=== PATIENT | female | born 1985 | race Caucasian/White ===

== ENCOUNTER 2017-02-17 19:15 | Emergency (ER) | payer OTHER ==
[~2017-02-17] VITALS: Ht 154.9 cm; Wt 56.7 kg
[~2017-02-17 19:15] MED LIST: 'PARAFON FORTE500 M1 PO; AMOXICILLIN500 MG PO; ATARAX10 MG/5 ML PO; AUGMENTIN 875 M1 TA1 PO; BIRTH CONTROL1 EACH PO; CARAFATE1 G1 PO; CARAFATE1 GM/10 ML PO; CLARITIN-D 10 M1 T21 PO; CLARITIN-D 12 H1 TAB PO; CYCLOBENZAPRINE10 MG PO; Carafate1 GM PO; DARVOCET N 1001 TAB PO; DAYPRO600 M1 PO; IMITREX25 MG PO; KLONOPIN1 MG PO; LITHIUM CARBON300 M1 PO; LITHIUM CARBON300 MG PO; LOMOTIL 0.025 M1 TA1 PO; MACROBID100 M1 PO; MOTRIN600 MG PO; MOTRIN800 MG PO; NAPROSYN500 MG PO; PANTOPRAZOLE SO40 MG PO; PREDNISONE20 MG PO; PREVACID SOLUTA30 MG PO; PRILOSEC20 MG PO; QVAR40 MCG INH; REMERON45 MG PO; RISPERDAL4 MG PO; RISPERIDONE2 M2 PO; SEROQUEL100 MG PO; SEROQUEL300 MG PO; SEROQUEL400 MG PO; SINGULAIR10 MG PO; ZANTAC150 MG PO; ZITHROMAX Z PA250 MG PO; ZITHROMAX250 MG PO; ZOFRAN ODT4 MG SL; ZOFRAN4 MG PO; ZOLOFT100 MG PO; ZOLOFT25 MG PO; ZYRTEC10 MG PO; Zofran4 MG PO
[2017-02-17] MEDS ORDERED: AMOXICILLI250 MG/5 M PO (19:40)
== END 2017-02-17 19:46 | disposition home or self-care (01) ==
LOC: ED 19:15
DX: H66.92 Otitis media, unspecified, left ear (principal); F17.200 Nicotine dependence, unspecified, uncomplicated; F32.9 Major depressive disorder, single episode, unspecified; Z79.899 Other long term (current) drug therapy

== ENCOUNTER 2017-03-02 17:40 | Emergency (ER) | payer OTHER ==
[~2017-03-02] VITALS: Wt 49.9 kg
[~2017-03-02 17:40] MED LIST changes: +AMOXICILLI250 MG/5 M PO
[2017-03-02] MEDS ORDERED: CATAPRES-TTS 10.1 MG PO (17:44)
[2017-03-02] MEDS ORDERED: ZANTAC 150150 MG PO (17:44)
[2017-03-02 18:24] LABS: BASO # 0.1 10*3/uL (0.0-0.1); BASO % 0.8 % (0.0-1.0); EOS # 0.1 10*3/uL (0.0-0.4); HEMATOCRIT 42.9 % (37.0-47.0); HEMOGLOBIN 14.1 g/dl (12.0-16.0); IG # 0.1 10*3/uL (0.0-0.1); LYMPH # 3.7 10*3/uL (1.3-4.4); LYMPH % 31.8 % (27.0-41.0); MEAN CELL VOLUME 91.9 fl (81.0-99.0); MEAN CORPUSCULAR HGB 30.2 pg (27.0-31.0); MEAN CORPUSCULAR HGB CONC 32.9 g/dl (33.0-37.0); MEAN PLATELET VOLUME 10.3 fl (9.6-12.3); MONO # 0.5 10*3/uL (0.1-1.0); MONO % 4.1 % (3.0-9.0); NEUT # 7.2 10*3/uL (2.3-7.9); NEUT % 61.9 % (47.0-73.0); PLATELET COUNT AUTOMATED 300 10*3/uL (130-400); RED BLOOD COUNT 4.67 10*6/uL (4.10-5.10); RED CELL DISTRI WIDTH 14.4 % (0-14.5); WHITE BLOOD COUNT 11.6 10*3/uL (4.8-10.8)
[2017-03-02] MEDS ORDERED: BENTYL10 MG PO (18:27)
[2017-03-02 18:38] LABS: ALKALINE PHOSPHATASE 92 U/L (45-117); BILIRUBIN, TOTAL 0.2 mg/dl (0.2-1.0); BUN 7 mg/dl (7-24); CARBON DIOXIDE 26 mmol/L (21-32); CHLORIDE 107 mmol/L (98-107); EST GLOM FILT AFRICAN AMERICAN > 60 ml/min; GLUCOSE 96 mg/dL (65-99); MAGNESIUM 2.1 mg/dL (1.5-2.1); POTASSIUM 4.2 mmol/L (3.5-5.1); SGOT/AST 14 IU/L (3-35); SGPT/ALT 12 U/L (12-78); SODIUM 143 mmol/L (136-145); TOTAL PROTEIN 7.3 gm/dL (6.4-8.2)
== END 2017-03-02 19:04 | disposition home or self-care (01) ==
LOC: ED 17:40
PROVIDERS: Nurse Practitioner Family
DX: R19.7 Diarrhea, unspecified (principal); F17.200 Nicotine dependence, unspecified, uncomplicated; F32.9 Major depressive disorder, single episode, unspecified

== ENCOUNTER → 2017-04-09 | Day surgery (SDC) | payer OTHER ==
[~2017-04-09] VITALS: Ht 154.9 cm; Wt 54.9 kg
[~2017-04-09] MED LIST changes: +BENTYL10 MG PO; +CATAPRES-TTS 10.1 MG PO; +NORCO 5-325 TA1 EACH PO; +PENICILLIN VK500 MG PO; +QVAR8.7 GM INH; +ZANTAC 150150 MG PO
--- NOTE | ~2017-04-09 | O ---
[place], [place] OPERATIVE NOTE NAME: PRASHANTH WEBB UNIT #: [id number] ROOM: DOCTOR: THERESA EDWARDS DMD BIRTHDATE: [birth year] DOS: 04/11/2017 PREOPERATIVE DIAGNOSES: Nonrestorable maxillary and mandibular dentition and anxiety. POSTOPERATIVE DIAGNOSES: Nonrestorable maxillary and mandibular dentition and anxiety. ANESTHESIA: General anesthesia with nasotracheal intubation. FLUIDS: Minimal. ESTIMATED BLOOD LOSS: Minimal. COMPLICATIONS: None. CONDITION: To PACU, stable. DESCRIPTION OF PROCEDURE: The patient was brought to the OR, placed in supine position. IV and EKG lines were placed. Nasotracheal intubation and general anesthesia was administered. The patient was prepped and draped for oral procedures. Risks and benefits were explained to the patient prior to surgery. Clinical exam and x-rays were taken determined nonrestorable maxillary and mandibular dentition. PROCEDURES PERFORMED: Full thickness flaps in the upper right, upper left and lower right quadrants, moderate bone removal around teeth numbers 1, 16 and 32. Complete extraction of teeth numbers 1, 2, 3, 4, 5, 6, 7, 8, 9, 10, 11, 15, 16, 21, 22, 23, 24, 25, 26, 27, 28, 31 and 32. Moderate alveoplasty in all 4 quadrants, sutured with 4-0 Vicryl. Maxillary and temporary dentures were tried in. Lavage x 2. Throat pack removed. The patient left the OR in good condition and went to the PACU. THERESA EDWARDS DMD CM:OPRECORD:OPERATIVE NOTE [id number] THERESA EDWARDS DMD 04/11/17 1334 interface
[2017-04-09 09:01] VITALS: BP 105/47
[2017-04-09 11:13] VITALS: BP 95/46
[2017-04-09 11:28] VITALS: BP 83/45
[2017-04-09 11:43] VITALS: BP 91/47
[2017-04-09 11:58] VITALS: BP 108/69
[2017-04-09 12:13] VITALS: BP 108/72
== END | disposition home or self-care (01) ==
LOC: SDC 04-04 09:30
DX: K00.7 Teething syndrome (principal); K02.9 Dental caries, unspecified; F41.9 Anxiety disorder, unspecified; F31.9 Bipolar disorder, unspecified; K21.9 Gastro-esophageal reflux disease without esophagitis; G43.909 Migraine, unspecified, not intractable, without status migrainosus; F90.9 Attention-deficit hyperactivity disorder, unspecified type; J45.909 Unspecified asthma, uncomplicated; F17.210 Nicotine dependence, cigarettes, uncomplicated

== ENCOUNTER 2017-11-15 21:47 | Emergency (ER) | payer OTHER ==
[~2017-11-15] VITALS: Ht 154.9 cm; Wt 64.9 kg
[2017-11-15] MEDS ORDERED: AMOX-CLAV 400-1 EACH PO (22:07)
== END 2017-11-15 22:00 | disposition home or self-care (01) ==
LOC: ED 21:47
DX: H65.93 Unspecified nonsuppurative otitis media, bilateral (principal); F17.200 Nicotine dependence, unspecified, uncomplicated

== ENCOUNTER 2017-12-12 18:18 | Emergency (ER) | payer OTHER ==
[~2017-12-12] VITALS: Wt 60.8 kg
[~2017-12-12 18:18] MED LIST changes: +AMOX-CLAV 400-1 EACH PO
[2017-12-12] MEDS ORDERED: OMNICEF300 MG PO (20:57)
== END 2017-12-12 21:00 | disposition home or self-care (01) ==
LOC: ED 18:18
DX: J32.1 Chronic frontal sinusitis (principal); F17.200 Nicotine dependence, unspecified, uncomplicated; Z79.899 Other long term (current) drug therapy

== ENCOUNTER 2018-03-09 18:09 | Emergency (ER) | payer OTHER ==
[~2018-03-09] VITALS: Ht 154.9 cm; Wt 63.5 kg
[~2018-03-09 18:09] MED LIST changes: +OMNICEF300 MG PO
[2018-03-09] MEDS ORDERED: OMNICEF300 MG PO (18:33)
== END 2018-03-09 18:42 | disposition home or self-care (01) ==
LOC: ED 18:09
DX: H66.93 Otitis media, unspecified, bilateral (principal); Z79.899 Other long term (current) drug therapy

== ENCOUNTER → 2020-01-30 | Outpatient (CLI) | payer MEDICARE, MEDICAID ==
[~2020-01-30] MED LIST changes: +AUGMENTIN 875875 MG PO; +BUSPIRONE HCL7.5 MG PO; +DEPAKOTE250 MG PO; +DEPAKOTE500 MG PO; +DIVALPROEX SOD250 MG PO; +LEVAQUIN750 M1 PO; +SEROQUEL400 M1 PO; +SINGULAIR10 M1 PO; -SINGULAIR10 MG PO
[2020-01-30 13:07] LABS: BASO # 0.1 10*3/uL (0.0-0.1); BASO % 0.9 % (0.0-1.0); EOS # 0.1 10*3/uL (0.0-0.4); EOS % 1.2 % (1.0-4.0); HEMATOCRIT 40.1 % (37.0-47.0); HEMOGLOBIN 12.9 g/dl (12.0-16.0); LYMPH # 4.3 10*3/uL (1.3-4.4); LYMPH % 36.9 % (27.0-41.0); MEAN CELL VOLUME 93.7 fl (81.0-99.0); MEAN CORPUSCULAR HGB 30.1 pg (27.0-31.0); MEAN CORPUSCULAR HGB CONC 32.2 g/dl (33.0-37.0); MONO # 0.6 10*3/uL (0.1-1.0); MONO % 5.2 % (3.0-9.0); NEUT # 6.5 10*3/uL (2.3-7.9); NEUT % 55.5 % (47.0-73.0); PLATELET COUNT AUTOMATED 316 10*3/uL (130-400); RED BLOOD COUNT 4.28 10*6/uL (4.10-5.10); RED CELL DISTRI WIDTH 14.9 % (0-14.5); WHITE BLOOD COUNT 11.7 10*3/uL (4.8-10.8)
[2020-01-30 13:36] LABS: ALBUMIN 3.1 gm/dl (3.1-4.5); ALKALINE PHOSPHATASE 90 U/L (45-117); BUN 12 mg/dl (7-24); CHLORIDE 104 mmol/L (98-107); CHOLESTEROL 196 mg/dL (<200); CREATININE 0.93 mg/dL (0.55-1.02); HDL CHOLESTEROL 56 mg/dl (40-60); LDL CHOLESTEROL 73 mg/dL (9-159); POTASSIUM 4.3 mmol/L (3.5-5.1); SGOT/AST 10 IU/L (3-35); SGPT/ALT 16 U/L (12-78); SODIUM 137 mmol/L (136-145); TOTAL PROTEIN 7.5 gm/dL (6.4-8.2); TRIGLYCERIDES 333 mg/dl (<150); VLDL CHOLESTEROL 67 mg/dL (6-40)
== END | disposition home or self-care (01) ==
LOC: LAB 12:31
PROVIDERS: Registered Nurse Psychiatric/Mental Health
DX: F31.81 Bipolar II disorder (principal); E78.5 Hyperlipidemia, unspecified; E43 Unspecified severe protein-calorie malnutrition

== ENCOUNTER → 2020-04-10 | Outpatient (CLI) | payer MEDICARE, MEDICAID | END | disposition home or self-care (01) | LOC: LAB 10:16 | DX: F31.81 Bipolar II disorder (principal) ==

== ENCOUNTER → 2020-04-27 | Outpatient (CLI) | payer MEDICARE, MEDICAID ==
[2020-04-27 09:36] LABS: HEMATOCRIT 38.7 % (37.0-47.0); MEAN CELL VOLUME 92.4 fl (81.0-99.0); MEAN CORPUSCULAR HGB 30.1 pg (27.0-31.0); MEAN CORPUSCULAR HGB CONC 32.6 g/dl (33.0-37.0); MEAN PLATELET VOLUME 10.9 fl (9.6-12.3); PLATELET COUNT AUTOMATED 304 10*3/uL (130-400); RED BLOOD COUNT 4.19 10*6/uL (4.10-5.10); RED CELL DISTRI WIDTH 16.7 % (0-14.5); WHITE BLOOD COUNT 11.5 10*3/uL (4.8-10.8)
[2020-04-27 09:59] LABS: BASOPHILS 1 % (0-1); PLATELET SUFFICIENCY NORMAL (NORMAL); TARGET CELLS MODERATE; TOTAL CELLS COUNTED 100 #CELLS
[2020-04-27 10:03] LABS: ALBUMIN 3.1 gm/dl (3.1-4.5); BUN 10 mg/dl (7-24); CHLORIDE 102 mmol/L (98-107); CHOLESTEROL 132 mg/dL (<200); CREATININE 1.11 mg/dL (0.55-1.02); POTASSIUM 3.8 mmol/L (3.5-5.1); SGPT/ALT 17 U/L (12-78); SODIUM 137 mmol/L (136-145); TOTAL PROTEIN 6.7 gm/dL (6.4-8.2); TRIGLYCERIDES 559 mg/dl (<150)
[2020-04-27 10:04] LABS: ALKALINE PHOSPHATASE 51 U/L (45-117); HDL CHOLESTEROL 5 mg/dl (40-60); SGOT/AST 10 IU/L (3-35); VALPROIC ACID (DEPAKENE) 119.7 ug/ml (50-100)
== END | disposition home or self-care (01) ==
LOC: LAB 09:01
PROVIDERS: Registered Nurse Psychiatric/Mental Health
DX: F31.9 Bipolar disorder, unspecified (principal); E11.9 Type 2 diabetes mellitus without complications

== ENCOUNTER 2020-08-18 12:01 | Emergency (ER) | payer MEDICARE, MEDICAID ==
[~2020-08-18] VITALS: Ht 154.9 cm; Wt 69.4 kg
[2020-08-18] MEDS ORDERED: OMNICEF300 MG PO (13:18)
== END 2020-08-18 13:14 | disposition home or self-care (01) ==
LOC: ED 12:01
DX: H66.91 Otitis media, unspecified, right ear (principal); J45.909 Unspecified asthma, uncomplicated; K21.9 Gastro-esophageal reflux disease without esophagitis; F41.9 Anxiety disorder, unspecified; F31.9 Bipolar disorder, unspecified; G43.909 Migraine, unspecified, not intractable, without status migrainosus; Z79.899 Other long term (current) drug therapy

== ENCOUNTER → 2020-09-18 | Outpatient (CLI) | payer MEDICARE, MEDICAID ==
[2020-09-18 08:36] LABS: HEMATOCRIT 40.1 % (37.0-47.0); MEAN CELL VOLUME 89.5 fl (81.0-99.0); MEAN CORPUSCULAR HGB CONC 32.4 g/dl (33.0-37.0); MEAN PLATELET VOLUME 10.1 fl (9.6-12.3); PLATELET COUNT AUTOMATED 298 10*3/uL (130-400); RED BLOOD COUNT 4.48 10*6/uL (4.10-5.10); RED CELL DISTRI WIDTH 13.4 % (0-14.5); WHITE BLOOD COUNT 11.3 10*3/uL (4.8-10.8)
[2020-09-18 08:53] LABS: ALKALINE PHOSPHATASE 74 U/L (45-117); BUN 9 mg/dl (7-24); CHLORIDE 102 mmol/L (98-107); CHOLESTEROL 132 mg/dL (<200); CREATININE 0.92 mg/dL (0.55-1.02); HDL CHOLESTEROL 42 mg/dl (40-60); SGOT/AST 7 IU/L (3-35); SGPT/ALT 12 U/L (12-78); SODIUM 135 mmol/L (136-145); TOTAL PROTEIN 6.9 gm/dL (6.4-8.2); TRIGLYCERIDES 455 mg/dl (<150)
[2020-09-18 08:56] LABS: ATYPICAL LYMPHS 1 % (0-0); BASOPHILS 2 % (0-1); TOTAL CELLS COUNTED 100 #CELLS
[2020-09-18 08:57] LABS: PLATELET SUFFICIENCY NORMAL (NORMAL); POLYCHROMASIA SLIGHT
== END | disposition home or self-care (01) ==
LOC: LAB 08:10
PROVIDERS: ATTEND Registered Nurse Psychiatric/Mental Health
DX: F31.9 Bipolar disorder, unspecified (principal); Z79.899 Other long term (current) drug therapy

== ENCOUNTER 2020-11-22 18:14 | Emergency (ER) | payer MEDICARE, MEDICAID ==
[~2020-11-22] VITALS: Wt 63.5 kg
[2020-11-22 20:16] LABS: BASO # 0.1 10*3/uL (0.0-0.1); BASO % 0.7 % (0.0-1.0); EOS # 0.1 10*3/uL (0.0-0.4); EOS % 0.9 % (1.0-4.0); LYMPH # 3.9 10*3/uL (1.3-4.4); LYMPH % 32.6 % (27.0-41.0); MEAN CELL VOLUME 89.4 fl (81.0-99.0); MEAN CORPUSCULAR HGB 28.9 pg (27.0-31.0); MEAN CORPUSCULAR HGB CONC 32.3 g/dl (33.0-37.0); MEAN PLATELET VOLUME 9.5 fl (9.6-12.3); MONO # 0.8 10*3/uL (0.1-1.0); MONO % 6.2 % (3.0-9.0); NEUT # 7.1 10*3/uL (2.3-7.9); NEUT % 59.4 % (47.0-73.0); PLATELET COUNT AUTOMATED 350 10*3/uL (130-400); RED BLOOD COUNT 4.92 10*6/uL (4.10-5.10); RED CELL DISTRI WIDTH 14.1 % (0-14.5)
[2020-11-22 20:33] LABS: ALBUMIN 3.7 gm/dl (3.1-4.5); ALKALINE PHOSPHATASE 57 U/L (45-117); BUN 7 mg/dl (7-24); CHLORIDE 109 mmol/L (98-107); CREATININE 0.95 mg/dL (0.55-1.02); SGOT/AST 15 IU/L (3-35); SGPT/ALT 18 U/L (12-78); SODIUM 139 mmol/L (136-145); TOTAL PROTEIN 7.7 gm/dL (6.4-8.2)
[2020-11-22] MEDS ORDERED: ZOFRAN4 MG PO (21:25)
== END 2020-11-22 22:00 | disposition home or self-care (01) ==
LOC: ED 18:14
PROVIDERS: Internal Medicine
DX: R51.9 Headache, unspecified (principal); K21.9 Gastro-esophageal reflux disease without esophagitis; B34.9 Viral infection, unspecified; Z91.040 Latex allergy status; Z79.899 Other long term (current) drug therapy

== ENCOUNTER → 2020-11-29 | Outpatient (CLI) | payer MEDICARE, MEDICAID ==
[2020-11-29 09:23] LABS: HEMATOCRIT 44.8 % (37.0-47.0)
[2020-11-29 09:53] LABS: ALBUMIN 3.5 gm/dl (3.1-4.5); ALKALINE PHOSPHATASE 58 U/L (45-117); BUN 6 mg/dl (7-24); CHLORIDE 109 mmol/L (98-107); CHOLESTEROL 149 mg/dL (<200); CREATININE 0.97 mg/dL (0.55-1.02); HDL CHOLESTEROL 68 mg/dl (40-60); IRON 71 ug/dL (50-170); LDL CHOLESTEROL 29 mg/dL (9-159); POTASSIUM 3.8 mmol/L (3.5-5.1); SGOT/AST 16 IU/L (3-35); SGPT/ALT 22 U/L (12-78); SODIUM 141 mmol/L (136-145); TOTAL IRON BINDING CAPACITY 575 ug/dl (250-450); TOTAL PROTEIN 7.2 gm/dL (6.4-8.2); TRIGLYCERIDES 262 mg/dl (<150); VLDL CHOLESTEROL 52 mg/dL (6-40)
[2020-11-29 09:58] LABS: THYROID STIM HORMONE (HS) 0.607 uIU/ml (0.358-4.75)
== END | disposition home or self-care (01) ==
LOC: LAB 08:26
PROVIDERS: ATTEND Family Medicine
DX: E03.9 Hypothyroidism, unspecified (principal); E78.1 Pure hyperglyceridemia; F41.8 Other specified anxiety disorders; R79.89 Other specified abnormal findings of blood chemistry; Z79.899 Other long term (current) drug therapy

== ENCOUNTER → 2020-12-24 | Outpatient (CLI) | payer MEDICARE, MEDICAID ==
[2020-12-24 09:12] LABS: HEMATOCRIT 43.7 % (37.0-47.0); MEAN CELL VOLUME 90.5 fl (81.0-99.0); MEAN CORPUSCULAR HGB 28.6 pg (27.0-31.0); MEAN CORPUSCULAR HGB CONC 31.6 g/dl (33.0-37.0); MEAN PLATELET VOLUME 9.2 fl (9.6-12.3); PLATELET COUNT AUTOMATED 406 10*3/uL (130-400); RED BLOOD COUNT 4.83 10*6/uL (4.10-5.10); RED CELL DISTRI WIDTH 14.6 % (0-14.5); WHITE BLOOD COUNT 17.3 10*3/uL (4.8-10.8)
[2020-12-24 09:43] LABS: ALBUMIN 3.5 gm/dl (3.1-4.5); ALKALINE PHOSPHATASE 48 U/L (45-117); BUN 5 mg/dl (7-24); CHLORIDE 107 mmol/L (98-107); CHOLESTEROL 131 mg/dL (<200); CREATININE 1.02 mg/dL (0.55-1.02); HDL CHOLESTEROL 60 mg/dl (40-60); LDL CHOLESTEROL 32 mg/dL (9-159); POTASSIUM 4.1 mmol/L (3.5-5.1); SGOT/AST 22 IU/L (3-35); SGPT/ALT 28 U/L (12-78); SODIUM 138 mmol/L (136-145); TOTAL PROTEIN 7.3 gm/dL (6.4-8.2); TRIGLYCERIDES 194 mg/dl (<150); VLDL CHOLESTEROL 39 mg/dL (6-40)
[2020-12-24 09:50] LABS: THYROID STIM HORMONE (HS) 0.705 uIU/ml (0.358-4.75)
[2020-12-24 09:53] LABS: ATYPICAL LYMPHS 2 % (0-0); PLATELET SUFFICIENCY HIGH (NORMAL); TOTAL CELLS COUNTED 100 #CELLS
== END | disposition home or self-care (01) ==
LOC: LAB 08:45
PROVIDERS: ATTEND Nurse Practitioner Family
DX: Z23 Encounter for immunization (principal); E78.1 Pure hyperglyceridemia; E55.9 Vitamin D deficiency, unspecified; R10.13 Epigastric pain; H66.92 Otitis media, unspecified, left ear; Z71.6 Tobacco abuse counseling

== ENCOUNTER → 2021-01-02 | Outpatient (CLI) | payer MEDICARE, MEDICAID ==
[2021-01-02 16:57] LABS: HEMATOCRIT 39.8 % (37.0-47.0); MEAN CELL VOLUME 88.1 fl (81.0-99.0); MEAN CORPUSCULAR HGB 28.5 pg (27.0-31.0); MEAN CORPUSCULAR HGB CONC 32.4 g/dl (33.0-37.0); MEAN PLATELET VOLUME 9.3 fl (9.6-12.3); PLATELET COUNT AUTOMATED 425 10*3/uL (130-400); RED BLOOD COUNT 4.52 10*6/uL (4.10-5.10); RED CELL DISTRI WIDTH 13.9 % (0-14.5); WHITE BLOOD COUNT 17.3 10*3/uL (4.8-10.8)
[2021-01-02 17:17] LABS: BASOPHILS 1 % (0-1); PLATELET SUFFICIENCY HIGH (NORMAL); TOTAL CELLS COUNTED 100 #CELLS; VACUOLATION OF NEUTROPHILS SLIGHT
== END | disposition home or self-care (01) ==
LOC: LAB 16:45
PROVIDERS: ATTEND Nurse Practitioner Family
DX: M25.512 Pain in left shoulder (principal); M79.602 Pain in left arm; D72.829 Elevated white blood cell count, unspecified; J32.9 Chronic sinusitis, unspecified; E55.9 Vitamin D deficiency, unspecified; Z91.81 History of falling

== ENCOUNTER → 2021-01-21 | Outpatient (CLI) | payer MEDICARE, MEDICAID | END | disposition home or self-care (01) | LOC: RAD 10:04 | PROVIDERS: ATTEND Nurse Practitioner Family | DX: D72.828 Other elevated white blood cell count (principal) ==

== ENCOUNTER 2021-01-30 22:19 | Emergency (ER) | payer MEDICARE, MEDICAID ==
[~2021-01-30] VITALS: Ht 154.9 cm; Wt 63.5 kg
[2021-01-30 23:14] LABS: BASO # 0.2 10*3/uL (0.0-0.1); BASO % 1.1 % (0.0-1.0); EOS # 0.5 10*3/uL (0.0-0.4); EOS % 2.8 % (1.0-4.0); HEMATOCRIT 38.2 % (37.0-47.0); LYMPH # 4.8 10*3/uL (1.3-4.4); LYMPH % 28.9 % (27.0-41.0); MEAN CELL VOLUME 90.5 fl (81.0-99.0); MEAN CORPUSCULAR HGB 29.1 pg (27.0-31.0); MEAN CORPUSCULAR HGB CONC 32.2 g/dl (33.0-37.0); MEAN PLATELET VOLUME 9.9 fl (9.6-12.3); MONO # 0.9 10*3/uL (0.1-1.0); MONO % 5.3 % (3.0-9.0); NEUT # 10.2 10*3/uL (2.3-7.9); NEUT % 61.5 % (47.0-73.0); PLATELET COUNT AUTOMATED 326 10*3/uL (130-400); RED BLOOD COUNT 4.22 10*6/uL (4.10-5.10); RED CELL DISTRI WIDTH 14.6 % (0-14.5); WHITE BLOOD COUNT 16.7 10*3/uL (4.8-10.8)
[2021-01-30 23:29] LABS: ALBUMIN 3.2 gm/dl (3.1-4.5); ALKALINE PHOSPHATASE 42 U/L (45-117); BUN 3 mg/dl (7-24); CHLORIDE 111 mmol/L (98-107); CREATININE 0.99 mg/dL (0.55-1.02); POTASSIUM 3.4 mmol/L (3.5-5.1); SGOT/AST 8 IU/L (3-35); SGPT/ALT 21 U/L (12-78); SODIUM 140 mmol/L (136-145)
[2021-01-31 00:11] LABS: BILIRUBIN Negative (Negative); BLOOD Negative (Negative); CLARITY Clear (Clear); COLOR Yellow (Yellow); GLUCOSE Negative (Negative); KETONE Negative (Negative); LEUKO ESTERASE Negative (Negative); NITRITE Negative (Negative); PH 6.5 (4.5-8.0); SPECIFIC GRAVITY <= 1.005 (1.001-1.030); UROBILINOGEN 0.2 E.U./dl (0.0-1.0)
[2021-01-31 00:22] LABS: EPITHELIAL CELLS 16-20
[2021-01-31 00:23] LABS: RBC 0-2 rbc/hpf (0-2); WBC 0-2 wbc/hpf (0-5)
[2021-01-31] MEDS ORDERED: ZOFRAN4 MG PO (00:40)
== END 2021-01-31 00:50 | disposition home or self-care (01) ==
LOC: ED 22:19
PROVIDERS: Internal Medicine
DX: B34.9 Viral infection, unspecified (principal); E87.6 Hypokalemia; D72.829 Elevated white blood cell count, unspecified; J45.909 Unspecified asthma, uncomplicated; K21.9 Gastro-esophageal reflux disease without esophagitis; F31.9 Bipolar disorder, unspecified; G43.909 Migraine, unspecified, not intractable, without status migrainosus; F41.9 Anxiety disorder, unspecified; F17.200 Nicotine dependence, unspecified, uncomplicated; Z91.040 Latex allergy status; Z98.890 Other specified postprocedural states; Z20.822 Contact with and (suspected) exposure to COVID-19

== ENCOUNTER → 2021-03-16 | Outpatient (CLI) | payer MEDICARE, MEDICAID | END | disposition home or self-care (01) | LOC: US 07:30 | PROVIDERS: ATTEND Nurse Practitioner Women's Health | DX: N83.201 Unspecified ovarian cyst, right side (principal); N83.8 Other noninflammatory disorders of ovary, fallopian tube and broad ligament ==

== ENCOUNTER 2021-07-07 20:40 | Emergency (ER) | payer MEDICARE ==
[~2021-07-07] VITALS: Ht 154.9 cm; Wt 60.3 kg
[2021-07-07 22:10] LABS: HEMATOCRIT 37.3 % (37.0-47.0); MEAN CELL VOLUME 88.4 fl (81.0-99.0); MEAN CORPUSCULAR HGB 28.2 pg (27.0-31.0); MEAN CORPUSCULAR HGB CONC 31.9 g/dl (33.0-37.0); MEAN PLATELET VOLUME 9.3 fl (9.6-12.3); PLATELET COUNT AUTOMATED 344 10*3/uL (130-400); RED BLOOD COUNT 4.22 10*6/uL (4.10-5.10); RED CELL DISTRI WIDTH 14.4 % (0-14.5); WHITE BLOOD COUNT 15.2 10*3/uL (4.8-10.8)
[2021-07-07 22:26] LABS: ALBUMIN 3.2 gm/dl (3.1-4.5); ALKALINE PHOSPHATASE 41 U/L (45-117); BUN 4 mg/dl (7-24); CHLORIDE 112 mmol/L (98-107); CREATININE 0.96 mg/dL (0.55-1.02); POTASSIUM 3.5 mmol/L (3.5-5.1); SGOT/AST 10 IU/L (3-35); SGPT/ALT 17 U/L (12-78); SODIUM 142 mmol/L (136-145); TOTAL PROTEIN 6.1 gm/dL (6.4-8.2)
[2021-07-07 22:28] LABS: TROPONIN I < 0.015 ng/ml (<0.045)
[2021-07-07 22:32] LABS: THYROID STIM HORMONE (HS) 0.919 uIU/ml (0.358-4.75)
[2021-07-07 22:50] LABS: ATYPICAL LYMPHS 2 % (0-0); BASOPHILS 2 % (0-1); BURR CELLS FEW; PLATELET SUFFICIENCY NORMAL (NORMAL); TOTAL CELLS COUNTED 100 #CELLS
[2021-07-08] MEDS ORDERED: AUGMENTIN 875875 MG PO (00:21)
== END 2021-07-08 00:44 | disposition home or self-care (01) ==
LOC: ED 20:40
PROVIDERS: Emergency Medicine
DX: R20.2 Paresthesia of skin (principal); H92.01 Otalgia, right ear; R20.0 Anesthesia of skin; R51.9 Headache, unspecified; J45.909 Unspecified asthma, uncomplicated; F41.9 Anxiety disorder, unspecified; F31.9 Bipolar disorder, unspecified; E78.00 Pure hypercholesterolemia, unspecified; F17.200 Nicotine dependence, unspecified, uncomplicated; Z79.2 Long term (current) use of antibiotics; Z79.899 Other long term (current) drug therapy; Z90.49 Acquired absence of other specified parts of digestive tract; Z91.040 Latex allergy status

== ENCOUNTER 2021-11-22 08:07 | Emergency (ER) | payer MEDICARE ==
[~2021-11-22] VITALS: Ht 154.9 cm; Wt 68.0 kg
[2021-11-22] MEDS ORDERED: ZOLOFT25 MG PO (08:26)
[2021-11-22] MEDS ORDERED: NEURONTIN300 MG PO (08:27)
[2021-11-22] MEDS ORDERED: KLONOPIN0.5 MG PO (08:27)
[2021-11-22] MEDS ORDERED: GEODON80 MG PO (08:28)
[2021-11-22] MEDS ORDERED: [UNRECOGNIZED DRUG - OTHER] PO (08:29)
== END 2021-11-22 09:18 | disposition home or self-care (01) ==
LOC: ED 08:07
DX: S93.401A Sprain of unspecified ligament of right ankle, initial encounter (principal); X58.XXXA Exposure to other specified factors, initial encounter; Y93.89 Activity, other specified; Y92.89 Other specified places as the place of occurrence of the external cause; Y99.8 Other external cause status

== ENCOUNTER → 2023-03-05 | Outpatient (CLI) | payer MEDICARE ==
[~2023-03-05] MED LIST changes: +GEODON80 MG PO; +KLONOPIN0.5 MG PO; +NEURONTIN300 MG PO; +[UNRECOGNIZED DRUG - OTHER] PO
== END | disposition home or self-care (01) ==
LOC: US 02-25 14:00
PROVIDERS: ATTEND Nurse Practitioner Women's Health
DX: N83.201 Unspecified ovarian cyst, right side (principal)

== ENCOUNTER 2023-04-02 15:35 | Emergency (ER) | payer MEDICARE ==
[~2023-04-02] VITALS: Wt 74.8 kg
[2023-04-02 16:23] LABS: BASO # 0.2 10*3/uL (0.0-0.1); BASO % 1.1 % (0.0-1.0); EOS # 0.2 10*3/uL (0.0-0.4); EOS % 1.5 % (1.0-4.0); HEMATOCRIT 42.7 % (37.0-47.0); LYMPH # 3.5 10*3/uL (1.3-4.4); MEAN CELL VOLUME 94.9 fl (81.0-99.0); MEAN CORPUSCULAR HGB CONC 33.7 g/dl (33.0-37.0); MEAN PLATELET VOLUME 9.6 fl (9.6-12.3); MONO # 0.8 10*3/uL (0.1-1.0); MONO % 5.8 % (3.0-9.0); NEUT # 9.2 10*3/uL (2.3-7.9); NEUT % 66.2 % (47.0-73.0); PLATELET COUNT AUTOMATED 311 10*3/uL (130-400); RED CELL DISTRI WIDTH 13.2 % (0-14.5); WHITE BLOOD COUNT 13.9 10*3/uL (4.8-10.8)
[2023-04-02 16:40] LABS: ALKALINE PHOSPHATASE 52 U/L (46-116); CHLORIDE 108 mmol/L (98-107); POTASSIUM 3.8 mmol/L (3.4-5.1); SGPT/ALT 42 U/L (10-49); TOTAL PROTEIN 6.6 gm/dL (6.0-8.0)
[2023-04-02 16:41] LABS: BUN < 5 mg/dl (9-23)
[2023-04-02] MEDS ORDERED: HYDROCODONE-AC1 EAC1 PO (17:26)
[2023-04-02 17:42] LABS: BILIRUBIN Negative (Negative); BLOOD Negative (Negative); CLARITY Clear (Clear); COLOR Yellow (Yellow); GLUCOSE Negative (Negative); KETONE Negative (Negative); LEUKO ESTERASE Negative (Negative); NITRITE Negative (Negative); PH 5.5 (4.5-8.0); SPECIFIC GRAVITY <= 1.005 (1.001-1.030); UROBILINOGEN 0.2 E.U./dl (0.0-1.0)
[2023-04-02] MEDS ORDERED: TEMAZEPAM30 MG PO (18:25)
[2023-04-02] MEDS ORDERED: CLONAZEPAM1 MG PO (18:25)
[2023-04-02] MEDS ORDERED: PEG3350238 GM PO (18:25)
[2023-04-02] MEDS ORDERED: GABAPENTIN400 MG PO (18:26)
[2023-04-02] MEDS ORDERED: QUETIAPINE FUM400 M1 PO (18:26)
[2023-04-02] MEDS ORDERED: ROSUVASTATIN CA20 MG PO (18:26)
[2023-04-02] MEDS ORDERED: SERTRALINE HYDR50 MG PO (18:27)
[2023-04-02] MEDS ORDERED: CETIRIZINE HYDR10 MG PO (18:27)
[2023-04-02] MEDS ORDERED: Synthroid,Levo25 MCG PO (18:27)
[2023-04-02] MEDS ORDERED: DICYCLOMINE HCL10 MG PO (18:28)
[2023-04-02] MEDS ORDERED: FENOFIBRATE145 M1 PO (18:28)
[2023-04-02] MEDS ORDERED: FLUTICASONE PROP 50 (18:28)
[2023-04-02] MEDS ORDERED: BREO ELLIPTA 21 EACH INH (18:31)
[2023-04-02] MEDS ORDERED: SUMATRIPTAN SUC50 M1 PO (18:31)
[2023-04-02 18:40] LABS: RBC 0-2 rbc/hpf (0-2); WBC 0-2 wbc/hpf (0-5)
== END 2023-04-02 17:31 | disposition home or self-care (01) ==
LOC: ED 15:35
PROVIDERS: Student in an Organized Health Care Education/Training Program
DX: R10.2 Pelvic and perineal pain (principal); J45.909 Unspecified asthma, uncomplicated; F41.9 Anxiety disorder, unspecified; F31.9 Bipolar disorder, unspecified; G43.909 Migraine, unspecified, not intractable, without status migrainosus; Z91.040 Latex allergy status; Z91.018 Allergy to other foods; Z88.8 Allergy status to other drugs, medicaments and biological substances; Z90.49 Acquired absence of other specified parts of digestive tract; Z98.890 Other specified postprocedural states; Z72.0 Tobacco use

== ENCOUNTER → 2023-04-04 | Outpatient (CLI) | payer MEDICARE ==
[~2023-04-04] MED LIST changes: +BREO ELLIPTA 21 EACH INH; +CETIRIZINE HYDR10 MG PO; +CLONAZEPAM1 MG PO; +DICYCLOMINE HCL10 MG PO; +FENOFIBRATE145 M1 PO; +FLUTICASONE PROP 50; +GABAPENTIN400 MG PO; +HYDROCODONE-AC1 EAC1 PO; +PEG3350238 GM PO; +QUETIAPINE FUM400 M1 PO; +ROSUVASTATIN CA20 MG PO; +SERTRALINE HYDR50 MG PO; +SUMATRIPTAN SUC50 M1 PO; +Synthroid,Levo25 MCG PO; +TEMAZEPAM30 MG PO
== END | disposition home or self-care (01) ==
LOC: RAD 10:40
PROVIDERS: ATTEND Nurse Practitioner Family
DX: D72.829 Elevated white blood cell count, unspecified (principal); J44.9 Chronic obstructive pulmonary disease, unspecified

== ENCOUNTER → 2023-09-18 | Outpatient (CLI) | payer MEDICARE | END | disposition home or self-care (01) | LOC: LAB 07:41 → US 08:00 | PROVIDERS: ATTEND Nurse Practitioner Women's Health | DX: N83.292 Other ovarian cyst, left side (principal); Z87.42 Personal history of other diseases of the female genital tract ==

== ENCOUNTER 2023-09-30 13:41 | Emergency (ER) | payer MEDICARE ==
[~2023-09-30] VITALS: Ht 154.9 cm; Wt 71.7 kg
[2023-09-30 14:30] LABS: BILIRUBIN Negative (Negative); BLOOD 3+ (Negative); CLARITY Clear (Clear); COLOR Yellow (Yellow); GLUCOSE Negative (Negative); KETONE Negative (Negative); LEUKO ESTERASE Trace (Negative); NITRITE Negative (Negative); SPECIFIC GRAVITY <= 1.005 (1.001-1.030); UROBILINOGEN 0.2 E.U./dl (0.0-1.0)
[2023-09-30 14:34] LABS: BASO # 0.1 10*3/uL (0.0-0.1); BASO % 1.2 % (0.0-1.0); EOS # 0.1 10*3/uL (0.0-0.4); EOS % 1.1 % (1.0-4.0); HEMATOCRIT 44.9 % (37.0-47.0); LYMPH # 3.6 10*3/uL (1.3-4.4); LYMPH % 34.7 % (27.0-41.0); MEAN CELL VOLUME 93.3 fl (81.0-99.0); MEAN CORPUSCULAR HGB 31.6 pg (27.0-31.0); MEAN CORPUSCULAR HGB CONC 33.9 g/dl (33.0-37.0); MEAN PLATELET VOLUME 9.4 fl (9.6-12.3); MONO # 0.6 10*3/uL (0.1-1.0); MONO % 5.9 % (3.0-9.0); NEUT # 5.9 10*3/uL (2.3-7.9); NEUT % 56.8 % (47.0-73.0); PLATELET COUNT AUTOMATED 355 10*3/uL (130-400); RED BLOOD COUNT 4.81 10*6/uL (4.10-5.10); RED CELL DISTRI WIDTH 13.1 % (0-14.5); WHITE BLOOD COUNT 10.3 10*3/uL (4.8-10.8)
[2023-09-30 14:39] LABS: BACTERIA 3+
[2023-09-30 14:57] LABS: ALKALINE PHOSPHATASE 49 U/L (46-116); CHLORIDE 107 mmol/L (98-107); POTASSIUM 3.5 mmol/L (3.4-5.1); SGPT/ALT 21 U/L (5-49)
[2023-09-30 15:01] LABS: BUN < 5 mg/dl (9-23)
== END 2023-09-30 16:48 | disposition home or self-care (01) ==
LOC: ED 13:41
PROVIDERS: Physician Assistant Medical
DX: N93.9 Abnormal uterine and vaginal bleeding, unspecified (principal); N83.202 Unspecified ovarian cyst, left side; R42 Dizziness and giddiness; F31.9 Bipolar disorder, unspecified; J45.909 Unspecified asthma, uncomplicated; K21.9 Gastro-esophageal reflux disease without esophagitis; F41.9 Anxiety disorder, unspecified; F90.9 Attention-deficit hyperactivity disorder, unspecified type; G43.909 Migraine, unspecified, not intractable, without status migrainosus; Z91.040 Latex allergy status; Z91.018 Allergy to other foods; Z90.49 Acquired absence of other specified parts of digestive tract; Z98.890 Other specified postprocedural states; Z72.0 Tobacco use; Z79.899 Other long term (current) drug therapy

== ENCOUNTER → 2024-03-04 | Outpatient (CLI) | payer MEDICARE ==
[~2024-03-04] MED LIST changes: +DICYCLOMINE HYD10 MG PO; +ESOMEPRAZOLE MA40 M1 PO; +FLUTICASONE PR50 MCG INH; +GOOD NEIGHBOR L10 MG PO; +JENCYCLA0.35 M1 PO; +MONTELUKAST SOD10 MG PO; +POTASSIUM CHLO20 ME3 PO; +PROVENTIL HFA6.7 GM INH; +SPIRIVA RESPIMAT4 GM INH; +VENLAFAXINE HY150 M2 PO; +VITAMIN D 1.25 MG
[2024-03-04 09:17] LABS: HEMATOCRIT 39.3 % (37.0-47.0); MEAN CELL VOLUME 90.1 fl (81.0-99.0); MEAN CORPUSCULAR HGB 30.7 pg (27.0-31.0); MEAN CORPUSCULAR HGB CONC 34.1 g/dl (33.0-37.0); MEAN PLATELET VOLUME 9.8 fl (9.6-12.3); RED BLOOD COUNT 4.36 10*6/uL (4.10-5.10); RED CELL DISTRI WIDTH 14.3 % (0-14.5); WHITE BLOOD COUNT 11.5 10*3/uL (4.8-10.8)
[2024-03-04 09:22] LABS: BILIRUBIN Negative (Negative); BLOOD Negative (Negative); CLARITY Clear (Clear); COLOR Yellow (Yellow); GLUCOSE Negative (Negative); KETONE Negative (Negative); LEUKO ESTERASE Trace (Negative); NITRITE Negative (Negative); PH 6.5 (4.5-8.0); SPECIFIC GRAVITY <= 1.005 (1.001-1.030)
[2024-03-04 09:32] LABS: BACTERIA 3+; YEAST TRACE
== END | disposition home or self-care (01) ==
LOC: LAB 08:53
PROVIDERS: ATTEND Nurse Practitioner Family
DX: E78.1 Pure hyperglyceridemia (principal); D72.829 Elevated white blood cell count, unspecified

== ENCOUNTER → 2024-05-23 | Outpatient (CLI) | payer MEDICARE ==
[2024-05-23 10:14] LABS: ALKALINE PHOSPHATASE 32 U/L (46-116); CHLORIDE 104 mmol/L (98-107); CHOLESTEROL 79 mg/dL (<200); LDL CHOLESTEROL 7 mg/dL (9-159); POTASSIUM 2.8 mmol/L (3.4-5.1); SGPT/ALT 16 U/L (5-49); TOTAL PROTEIN 6.7 gm/dL (6.0-8.0); TRIGLYCERIDES 212 mg/dl (<150)
[2024-05-23 10:25] LABS: BUN < 5 mg/dl (9-23)
[2024-05-23 10:29] LABS: VITAMIN D, 25-HYDROXY 26.1 ng/mL (30-100)
== END ==
LOC: LAB 09:05
PROVIDERS: ATTEND Nurse Practitioner Family
DX: E78.1 Pure hyperglyceridemia (principal); E03.1 Congenital hypothyroidism without goiter; E55.9 Vitamin D deficiency, unspecified; R79.89 Other specified abnormal findings of blood chemistry

== ENCOUNTER 2024-06-11 18:00 | Emergency (ER) | payer MEDICARE ==
[~2024-06-11] VITALS: Ht 154.9 cm; Wt 68.0 kg
[2024-06-11] MEDS ORDERED: Ketorolac Tromethamine 30 MG/ML VIAL IM ONE (18:30)
[2024-06-11] MEDS ORDERED: methylPREDNISolone sod succ 125 MG VIAL IM ONE (18:30)
== END 2024-06-11 20:52 | disposition home or self-care (01) ==
LOC: ED 18:00
DX: M79.605 Pain in left leg (principal); M79.604 Pain in right leg; F41.9 Anxiety disorder, unspecified; G43.909 Migraine, unspecified, not intractable, without status migrainosus; K21.9 Gastro-esophageal reflux disease without esophagitis; F31.9 Bipolar disorder, unspecified; F90.9 Attention-deficit hyperactivity disorder, unspecified type; J45.909 Unspecified asthma, uncomplicated; Z91.040 Latex allergy status; Z91.018 Allergy to other foods; Z90.49 Acquired absence of other specified parts of digestive tract; Z98.890 Other specified postprocedural states; Z72.0 Tobacco use

== ENCOUNTER 2024-06-19 14:26 | Emergency (ER) | payer MEDICARE ==
[~2024-06-19] VITALS: Ht 154.9 cm; Wt 68.0 kg
[2024-06-19] MEDS ORDERED: Acetaminophen/Hydrocodone 5 MG/325 MG TABLET PO ONE (15:20)
[2024-06-19] MEDS ORDERED: HYDROCODONE-AC1 EAC1 PO (15:21)
== END 2024-06-19 15:54 | disposition home or self-care (01) ==
LOC: ED 14:26
DX: S82.832A Other fracture of upper and lower end of left fibula, initial encounter for closed fracture (principal); I10 Essential (primary) hypertension; E83.51 Hypocalcemia; E87.6 Hypokalemia; E83.42 Hypomagnesemia; F41.9 Anxiety disorder, unspecified; E11.9 Type 2 diabetes mellitus without complications; K21.9 Gastro-esophageal reflux disease without esophagitis; E03.9 Hypothyroidism, unspecified; F31.9 Bipolar disorder, unspecified; G43.909 Migraine, unspecified, not intractable, without status migrainosus; Z91.040 Latex allergy status; Z91.018 Allergy to other foods; Z90.49 Acquired absence of other specified parts of digestive tract; Z98.890 Other specified postprocedural states; Z72.0 Tobacco use; W10.8XXA Fall (on) (from) other stairs and steps, initial encounter; Y93.89 Activity, other specified; Y92.009 Unspecified place in unspecified non-institutional (private) residence as the place of occurrence of the external cause; Y99.8 Other external cause status

== ENCOUNTER → 2024-06-22 | Outpatient (CLI) | payer MEDICARE | END | disposition home or self-care (01) | LOC: RAD 14:30 | PROVIDERS: ATTEND Orthopaedic Surgery | DX: S82.432A Displaced oblique fracture of shaft of left fibula, initial encounter for closed fracture (principal); S93.422A Sprain of deltoid ligament of left ankle, initial encounter; X58.XXXA Exposure to other specified factors, initial encounter; Y93.89 Activity, other specified; Y92.89 Other specified places as the place of occurrence of the external cause; Y99.8 Other external cause status ==

== ENCOUNTER 2024-07-03 14:53 | Emergency (ER) | payer MEDICARE ==
[2024-07-03] MEDS ORDERED: Pantoprazole Sodium 40 MG VIAL IV ONE ×2 (15:10→15:15)
[2024-07-03] MEDS ORDERED: Pantoprazole Sodium 40 MG IV ONE (15:10)
[2024-07-03] MEDS ORDERED: FAMOTIDINE 50 ML IV ONE ×2 (15:10)
[2024-07-03] MEDS ORDERED: SODIUM CHLORIDE 0.9% 2,000 ML IV ONE (15:18)
[2024-07-03] MEDS ORDERED: SODIUM CHLORIDE 0.9% 1,000 ML IV ONE ×2 (15:20)
[2024-07-03] MEDS ORDERED: NOREPINEPHRINE BITARTRATE/D5W 250 ML IV ONE (15:24)
[2024-07-03 15:30] LABS: MEAN CELL VOLUME 95.2 fl (81.0-99.0); MEAN CORPUSCULAR HGB 30.4 pg (27.0-31.0); MEAN PLATELET VOLUME 12.1 fl (9.6-12.3); NUCLEATED RED BLOOD CELL 0.1 10*3/uL (0.0-0.0); PLATELET COUNT AUTOMATED 149 10*3/uL (130-400); RED BLOOD COUNT 2.07 10*6/uL (4.10-5.10); RED CELL DISTRI WIDTH 17.2 % (0-14.5); WHITE BLOOD COUNT 5.5 10*3/uL (4.8-10.8)
[2024-07-03] MEDS ORDERED: DEXTROSE 5% IV SCH (15:35)
[2024-07-03] MEDS ORDERED: [UNRECOGNIZED DRUG - OTHER] IV SCH (15:35)
[2024-07-03] MEDS ORDERED: VASOPRESSIN 100 ML IV ONE (15:36)
[2024-07-03 15:37] LABS: MANUAL DIFF REFLEX YES
[2024-07-03 15:38] LABS: HEMATOCRIT 19.7 % (37.0-47.0)
[2024-07-03 15:40] VITALS: BP 53/26
[2024-07-03 15:40] LABS: ACT PARTIAL THROMBO TIME 32.5 SECONDS (20.0-32.1)
[2024-07-03 15:42] LABS: ABG BASE EXCESS -13.1 mmol/L (-2.0-2.0); ARTERIAL BLOOD GAS PH 6.992 (7.35-7.45)
[2024-07-03 15:56] LABS: ALKALINE PHOSPHATASE 54 U/L (46-116); BUN 114 mg/dl (9-23); CHLORIDE 92 mmol/L (98-107); POTASSIUM 5.3 mmol/L (3.4-5.1); TOTAL PROTEIN 4.7 gm/dL (6.0-8.0)
[2024-07-03 15:57] LABS: PLATELET SUFFICIENCY NORMAL (NORMAL); TOTAL CELLS COUNTED 100 #CELLS
[2024-07-03 16:01] VITALS: BP 79/33
[2024-07-03 16:04] LABS: SGPT/ALT > 3300 U/L (5-49)
[2024-07-06] MEDS ORDERED: SODIUM CHLORIDE IV ONE (13:22)
[2024-07-06] MEDS ORDERED: EPINEPHrine Hydrochloride 1 MG/10 ML SYR IV ONE ×2 (13:22→13:23)
[2024-07-06] MEDS ORDERED: Amiodarone Hydrochloride 150 MG/3 ML VIAL IV ONE (13:22)
[2024-07-06] MEDS ORDERED: ATROPINE SULFATE 1 MG/10 ML SYR IV ONE (13:23)
[2024-07-06] MEDS ORDERED: CALCIUM CHLORIDE 1 GM/10 ML SYR IV ONE (13:23)
[2024-07-06] MEDS ORDERED: SODIUM BICARBONATE 50 MEQ/50 ML SYR IV ONE (13:23)
[2024-07-06] MEDS ORDERED: DEXTROSE 50% 25 GM/50 ML SYR IV ONE (13:23)
== END 2024-07-03 16:45 | disposition short-term general hospital (02) ==
LOC: ED 14:53
PROVIDERS: Emergency Medicine; Nurse Practitioner Family
DX: I46.9 Cardiac arrest, cause unspecified (principal); K92.2 Gastrointestinal hemorrhage, unspecified; J44.9 Chronic obstructive pulmonary disease, unspecified; F41.9 Anxiety disorder, unspecified; K21.9 Gastro-esophageal reflux disease without esophagitis; F90.9 Attention-deficit hyperactivity disorder, unspecified type; F31.9 Bipolar disorder, unspecified; G43.909 Migraine, unspecified, not intractable, without status migrainosus; Z91.040 Latex allergy status; Z91.018 Allergy to other foods; Z90.49 Acquired absence of other specified parts of digestive tract; Z98.890 Other specified postprocedural states; Z72.0 Tobacco use